=== PATIENT | male | born 1950 | race Caucasian/White ===

== ENCOUNTER 2021-08-30 17:35 | Emergency (ER) | payer MEDICARE, BC, SELFPAY ==
--- NOTE | ~2021-08-30 | CT_ITS ---
EXAMINATION: CT abdomen pelvis wo con DATE: 08/30/2021 19:46 INDICATION: flank pain TECHNIQUE: Computed tomography (CT) of the abdomen and pelvis was performed without intravenous contr ast. Automated exposure control and iterative reconstruction technique were employed. The dose-length product was 926.14 mGy-cm. COMPARISON: None FINDINGS: Lower thorax: Right middle lobe granuloma. Aortic valve calcification. Liver: Normal. Biliary/Gallbladder: Gallbladder is collapsed. No bile duct dilation. Pancreas: No mass or duct dilation. Spleen: Normal. Adrenals:No mass. Kidneys: Mild bilateral stranding, worse on the right. Mild right hydronephrosis. No renal calcificat ions or mass. GI tract: No small or large bowel dilation. Appendix surgically absent. Mesentery/Peritoneum: No ascites, mass, or free air. Retroperitoneum: No mass. Minimal abdominal arterial atherosclerosis. Pelvis: 3 x 5 mm right UVJ stone, otherwise the pelvic organs are within normal limits. Soft Tissues: Soft tissues and body wall unremarkable. Bones: No acute osseous finding. IMPRESSION: 3 x 5 mm right UVJ stone causing mild obstructive uropathy. Reviewed, dictated and finalized at location K.
[2021-08-30 17:47] VITALS: BP 157/89; PULSE 54; RESP 16; TEMP 35.7; O2SAT 100
[2021-08-30 20:04] LABS: Appearance Urine Clear (Clear); Bilirubin Urine Negative (Negative); Blood Urine 3+ (Negative); Color Urine Yellow (Yellow); Glucose Urine UA 2+ mg/dL (Negative); Ketones Urine 3+ mg/dL (Negative); Leukocyte Esterase Ur Negative LEU/UL (Negative); Nitrate Urine Negative (Negative); Protein Urine 1+ mg/dL (Negative); Specific Grav Ur 1.025 (1.001-1.035); pH Urine 6.5 (5.0-9.0)
[2021-08-30 20:10] LABS: RBC Urine >75 /hpf (0-2); WBC Urine 0-3 /hpf
[2021-08-30 20:11] LABS: Add Urine Microscopic? YES
[2021-08-30 20:27] VITALS: BP 134/86; PULSE 68; RESP 16; O2SAT 97
--- NOTE | 2021-08-30 20:33 | ED.MALEGU ---
HPI - Male Genitourinary General Chief complaint: Urogenital-Male Stated complaint: right flank pain, diff urinating Time Seen by Provider: 08/30/21 19:04 History of Present Illness HPI Narrative: 70-year-old patient presents with right flank pain that moved to his right lower quadrant, history of kidney stones states that he has also been having intermittent pain in his penis for the past month. Related Data Home Medications Medication Instructions Recorded Confirmed gabapentin 08/30/21 08/30/21 glipizide mg 08/30/21 metformin mg PO 08/30/21 pioglitazone mg 08/30/21 sildenafil 08/30/21 Allergies Allergy/AdvReac Type Severity Reaction Status Date / Time Penicillins Allergy Rash Verified 08/30/21 20:26 Review of Systems Review of Systems: CONST: No fever. HEENT: No sore throat C/V: No chest pain RESP: No cough GI: Reports abdominal pain : Intermittent pain in penis M/S: No joint pain. SKIN: No rash. NEURO: [No headache] PSYCH: [No depression] FOR[facility]LY [facility] Past Medical History Medical History (Updated 08/30/21 @ 21:29 by Karen Sanderson MD) Diabetes Kidney stone Surgical History Surgical History (Updated 08/30/21 @ 21:30 by Karen Sanderson MD) History of appendectomy Exam Narrative: EXAMINATION OF ORGAN SYSTEMS/BODY AREAS: Constitutional: Vital signs per nursing GENERAL: Resting comfortably in bed, no acute distress HEAD: Normal with no signs of head trauma. ENT: Hearing grossly intact LUNGS: Nonlabored breathing. HEART: [Regular rate and rhythm] ABD: [Soft], [nontender to palpation], no CVA tenderness EXT: Normal range of motion : Normal appearing penis SKIN: [No rashes or lesions.] NEURO: [Alert and oriented x 3. No gross focal sensory or strength deficits.] PSYCH: Normal affect Course Course Emergency Course: 70-year-old male presenting with right flank pain radiating to the right lower quadrant that is now resolved, and intermittent pain in his penis. Vital signs stable, exam shows soft, nontender abdomen and back, normal-appearing penis that is nontender at this time. Without any rash. Differential includes calculi, versus UTI, unlikely balanitis without rash. UA not consistent with infection, CT abdomen pelvis shows right UVJ stone, discussed with patient who feels as he is not having pain at this time he would like to go home. He is given follow-up to urology further work-up and treatment as I suspect he may be passing stones causing him pain, return precautions provided, we will not be starting him on Flomax as he has been taking Viagra. Stable for discharge home. Vital Signs Vital signs: Vital Signs Temperature 96.2 F L 08/30/21 17:47 Pulse Rate 54 L 08/30/21 17:47 Respiratory Rate 16 08/30/21 17:47 Blood Pressure 157/89 H 08/30/21 17:47 Pulse Oximetry 100 08/30/21 17:47 Temperature 96.2 F L 08/30/21 17:47 Pulse Rate 68 08/30/21 20:27 Respiratory Rate 16 08/30/21 20:27 Blood Pressure 134/86 08/30/21 20:27 Pulse Oximetry 97 08/30/21 20:27 MDM - Male Genitourinary Lab Data Labs: Lab Results 08/30/21 Range/Units 19:51 Urine Color Yellow (Yellow) Urine Appearance Clear (Clear) Urine pH 6.5 (5.0-9.0) Ur Specific [place] 1.025 (1.001-1.035) Urine Protein 1+ H (Negative) mg/dL Urine Glucose (UA) 2+ H (Negative) mg/dL Urine Ketones 3+ H (Negative) mg/dL Ur Blood (Man) 3+ H (Negative) Urine Nitrate Negative (Negative) Urine Bilirubin Negative (Negative) Urine Urobilinogen 2.0 H (<2.0) mg/dL Leukocyte Esterase Rfl Negative (Negative) MYLENE/UL Urine RBC >75 H (0-2) /hpf Urine WBC 0-3 /hpf Discharge Plan Discharge Clinical Impression: Kidney stone Patient Disposition: Home, Self-Care Condition: Stable Instructions: Antibiotic Form, Kidney Stones (ED) Prescriptions: No Action pioglitazone 15 mg tablet RF: 0 glipizide 10 mg tablet RF: 0 sildenaf
== END 2021-08-30 21:00 | disposition home or self-care (01) ==
PROVIDERS: Emergency Provider Emergency Medicine
DX: N13.9 Obstructive and reflux uropathy, unspecified (principal); N20.1 Calculus of ureter; E11.9 Type 2 diabetes mellitus without complications; Z87.442 Personal history of urinary calculi; Z79.84 Long term (current) use of oral hypoglycemic drugs
CPT/HCPCS: 74176; 81001; 99284